=== PATIENT | female | born 1945 | race Caucasian/White ===

== ENCOUNTER 2020-04-12 14:29 | Outpatient (REF) | payer MEDICARE, SELFPAY ==
[2020-04-12 20:42] LABS: HCT 41.4 % (36.0-46.0); HGB 13.5 g/dL (12.0-15.5); Mean Corp. HGB Concentration 32.6 g/dL (32.0-36.0); Mean Corpuscular Hemoglobin 29.3 pg (27.0-33.0); Mean Platelet Volume 12.1 fL (8.0-11.0); Platelet Count 236 x1000/uL (130-400); RBC Distribution Width 13.7 % (11.7-14.6); White Blood Cell Count 6.23 k/cumm (4.4-10.8)
[2020-04-12 21:05] LABS: ALT 35 U/L (14-59); AST 23 U/L (15-37); Albumin 4.5 g/dL (3.4-5.0); Alkaline Phosphatase 74 U/L (46-116); Anion Gap 7.7 mmol/L (3-11); BUN 22 mg/dL (7-18); Bilirubin, Total 0.6 mg/dL (0.2-1.0); CO2 28.3 mmol/L (21.0-32.0); CREATININE 1.12 mg/dL (0.55-1.02); Calcium 10.5 mg/dL (8.5-10.1); Calculated LDL 84 mg/dL (<100); Chloride 102 mmol/L (98-107); Cholesterol 158 mg/dL (<200); Estimated GFR 47.69 (mL/min/1.73m2); Glucose 114 mg/dL (74-106); HDL Cholesterol 39 mg/dL (40-60); Potassium 4.2 mmol/L (3.5-5.1); Sodium 138 mmol/L (136-145); TSH (W/Ref FT4) 0.93 uIU/mL (0.36-3.74); Triglyceride 178 mg/dL (<150)
== END 2020-04-12 14:49 ==
LOC: NCHCN 14:29
PROVIDERS: PCP Internal Medicine; Visit Provider Internal Medicine
DX: E03.9 Hypothyroidism, unspecified (principal); E11.9 Type 2 diabetes mellitus without complications; I10 Essential (primary) hypertension
CPT/HCPCS: 80053; 80061; 85027; 84443

== ENCOUNTER 2020-04-13 09:13 | Outpatient (CLI) | payer MEDICARE, OTHER, SELFPAY ==
--- NOTE | 2020-04-13 | DI.RAD_ITS ---
EXAM: XR THORACIC SPINE COMPLETE CLINICAL HISTORY: BACK PAIN, M54.5, PSORIATIC ARTHRITIS,L40/50. TECHNIQUE: 2D digital imaging was performed. COMPARISON: CR CHEST 2 VIEWS PA,LAT from 07/30/2017 CR XR CERVICAL SPINE COMP 4-5V from 04/13/2020 FINDINGS: There are prominent and failure osteophytes seen throughout the thoracic spine. No compression fract ures are seen. No gross bony erosions are identified. The visualized portions of the lungs appear c lear. The heart size is within normal limits for projection. The aorta shows calcification but is n ormal in diameter. IMPRESSION: Advanced degenerative disc changes.. DATA REPOSITORY: RADIATION DOSE DELIVERED:
--- NOTE | 2020-04-13 | DI.RAD_ITS ---
EXAM: XR CERVICAL SPINE COMP 4-5V CLINICAL HISTORY: NECK PAIN, PSORIATIC ARTHRITIS, L40.50. TECHNIQUE: 2D digital imaging was performed. COMPARISON: CT HEAD WITHOUT CONTRAST from 07/30/2017 FINDINGS: There are severe degenerative changes at the C1-2 . There is some straightening of the normal cervic al lordosis. There is mild disc space narrowing and small endplate osteophytes throughout. There ar e prominent facet joint degenerative changes, greatest at C2-3 and C3-4. The findings appear more se beatriz on the right. There is bilateral neural foraminal encroachment at multiple levels. No bony ero sions are seen.. IMPRESSION: Severe facet joint degenerative changes. DATA REPOSITORY: RADIATION DOSE DELIVERED:
--- NOTE | 2020-04-13 | DI.RAD_ITS ---
EXAM: XR LUMBAR SPINE COMPLETE CLINICAL HISTORY: LOW BACK PAIN, M54.5, PSORIATIC ARTHRITIS,L40.50. TECHNIQUE: 2D digital imaging was performed. COMPARISON: No exams were available for comparison FINDINGS: The vertebral bodies are well maintained in height. There are severe degenerative disc changes at T1 2-L1. Endplate osteophytes are seen at the remaining levels. There is a levoscoliosis with the apex centered at L2. There are prominent facet degenerative changes of the lower lumbar spine. The aort a is heavily calcified and normal in diameter. There is surgical clips in both right and left upper quadrants. IMPRESSION: Severe degenerative disc changes greatest at the T12-L1. Scoliosis. Severe facet joint degenerative changes. DATA REPOSITORY: RADIATION DOSE DELIVERED:
== END 2020-04-13 09:33 ==
PROVIDERS: PCP Internal Medicine; Visit Provider Internal Medicine
DX: M54.2 Cervicalgia (principal); L40.50 Arthropathic psoriasis, unspecified; M47.812 Spondylosis without myelopathy or radiculopathy, cervical region; M54.6 Pain in thoracic spine; M47.815 Spondylosis without myelopathy or radiculopathy, thoracolumbar region; M54.5 Low back pain; M51.35 Other intervertebral disc degeneration, thoracolumbar region
CPT/HCPCS: 72050; 72072; 72110

== ENCOUNTER 2020-05-15 15:51 | Outpatient (REF) | payer MEDICARE, SELFPAY ==
[2020-05-15 20:55] LABS: Anion Gap 9.5 mmol/L (3-11); BUN 22 mg/dL (7-18); CO2 26.5 mmol/L (21.0-32.0); CREATININE 1.05 mg/dL (0.55-1.02); Chloride 103 mmol/L (98-107); Estimated GFR 51.37 (mL/min/1.73m2); Glucose 155 mg/dL (74-106); Potassium 4.2 mmol/L (3.5-5.1); Sodium 139 mmol/L (136-145)
== END 2020-05-15 16:11 ==
LOC: NCHCN 15:51
PROVIDERS: PCP Internal Medicine; Visit Provider Internal Medicine
DX: I10 Essential (primary) hypertension (principal)
CPT/HCPCS: 80048

== ENCOUNTER 2020-08-06 12:57 | Outpatient (REF) | payer MEDICARE, OTHER, SELFPAY ==
[2020-08-06 21:16] LABS: Anion Gap 9.8 mmol/L (3-11); BUN 28 mg/dL (7-18); CO2 25.2 mmol/L (21.0-32.0); CREATININE 1.27 mg/dL (0.55-1.02); Calcium 9.9 mg/dL (8.5-10.1); Chloride 104 mmol/L (98-107); Estimated GFR 41.25 (mL/min/1.73m2); Glucose 169 mg/dL (74-106); Potassium 4.5 mmol/L (3.5-5.1); Sodium 139 mmol/L (136-145)
== END 2020-08-06 13:17 ==
LOC: NCHCN 12:57
PROVIDERS: PCP Internal Medicine; Visit Provider Internal Medicine
DX: E11.9 Type 2 diabetes mellitus without complications (principal); I10 Essential (primary) hypertension; E83.52 Hypercalcemia
CPT/HCPCS: 80048; 83036

== ENCOUNTER 2020-08-16 02:44 | Outpatient (CLI) | payer MEDICARE, OTHER, SELFPAY ==
--- NOTE | 2020-08-16 | DI.MAMMO_ITS ---
EXAM: MAMMO SCREENING CLINICAL HISTORY: SCREENING,Z12.39 TECHNIQUE: Mammograms were interpreted according to the usual protocol including computer analysis w [employer] CAD system, tomosynthesis and C-view imaging. COMPARISON: FINDINGS: The breasts are of moderate density with fairly symmetrical distribution of fibroglandular tissue. N o dominant mass or clumped microcalcification is identified in either breast. No prior studies available for comparison. There is focal area nodularity projected in the supra-areolar portion the right breast MLO view, this is visible retro areolar laterally on the CC view as well, this is incompletely characterized, addit ional evaluation with spot compression views and right breast ultrasound recommended. No other suspicious findings. IMPRESSION: Additional mammographic views of the right breast and right breast ultrasound requested as described above. BI-RADS Category 0 - Assessment Incomplete: Need additional imaging evaluation Breast Density - Category B - Scattered areas of fibroglandular density
== END 2020-08-16 03:04 ==
PROVIDERS: PCP Internal Medicine; Visit Provider Internal Medicine
DX: Z12.31 Encounter for screening mammogram for malignant neoplasm of breast (principal); R92.8 Other abnormal and inconclusive findings on diagnostic imaging of breast
CPT/HCPCS: 77063; 77067

== ENCOUNTER 2020-08-23 00:26 | Outpatient (CLI) | payer MEDICARE, OTHER, SELFPAY ==
--- NOTE | 2020-08-23 | DI.US_ITS ---
EXAM: MG MAMMO SCREEN CALL BACK UNI CLINICAL HISTORY: F/U MAMMO,NODULARITY RT BREAST MLO VIEW TECHNIQUE: Mammograms were interpreted according to the usual protocol including computer analysis w ith CAD system, tomosynthesis and C-view imaging. COMPARISON: FINDINGS: Additional mammographic views the right breast and right breast ultrasound are interpreted in conjunc tion. These examinations were obtained to evaluate questionable area of asymmetric density in the up per outer quadrant right breast seen on recent mammogram. Additional mammographic views fail to show a discrete mass. Breast ultrasound shows no evidence of a mass or cyst. IMPRESSION: No specific evidence of malignancy at this time. Follow-up unilateral right breast mammogram recomme nded in 6 months. BI-RADS Category 3 - 6 month - Probably Benign Finding: Recommend follow-up mammography in 6 months Breast Density - Category B - Scattered areas of fibroglandular density
== END 2020-08-23 00:46 ==
PROVIDERS: PCP Internal Medicine; Visit Provider Internal Medicine
DX: R92.8 Other abnormal and inconclusive findings on diagnostic imaging of breast (principal)
CPT/HCPCS: 76642; 77063; 77067

== ENCOUNTER 2021-04-16 01:16 | Outpatient (CLI) | payer MEDICARE, OTHER, SELFPAY ==
--- NOTE | 2021-04-16 10:00 | DI.MAMMO_ITS ---
Exam(s) MAMMO DIAGNOSTIC BI EXAM: MAMMO DIAGNOSTIC BI CLINICAL HISTORY: 6 MONTH FOLLOW UP,F/U ABNL MAMMO, R92.8 TECHNIQUE: Mammograms were interpreted according to the usual protocol including computer analysis w [employer] CAD system, tomosynthesis and C-view imaging. COMPARISON: FINDINGS: The breasts are of moderate density with fairly symmetrical distribution of fibroglandular tissue. N o dominant mass or clumped microcalcification is identified in either breast. A previously described area of asymmetric density in the upper outer quadrant of the right breast seen on prior examination of August 2020 is unchanged or less prominent on the current examination. IMPRESSION: No specific evidence of malignancy at this time. Routine screening examinations are suggested at yea rly intervals in this age group according to the ACS ACR guidelines. BI-RADS Category 1 - Negative Breast Density - Category B - Scattered areas of fibroglandular density
== END 2021-04-16 01:36 ==
PROVIDERS: PCP Internal Medicine; Visit Provider Internal Medicine
DX: Z12.31 Encounter for screening mammogram for malignant neoplasm of breast (principal); R92.8 Other abnormal and inconclusive findings on diagnostic imaging of breast; N64.59 Other signs and symptoms in breast
CPT/HCPCS: 77062; 77066; G0279

== ENCOUNTER 2021-04-18 15:04 | Outpatient (REF) | payer MEDICARE, OTHER, SELFPAY ==
[2021-04-18 22:39] LABS: Anion Gap 7.8 mmol/L (3-11); BUN 23 mg/dL (7-18); CO2 28.2 mmol/L (21.0-32.0); CREATININE 1.1 mg/dL (0.55-1.02); Calcium 9.7 mg/dL (8.5-10.1); Chloride 99 mmol/L (98-107); Estimated GFR 48.55 (mL/min/1.73m2); Glucose 107 mg/dL (74-106); Potassium 4.9 mmol/L (3.5-5.1); Sodium 135 mmol/L (136-145); Vitamin B12 410 pg/mL (193-986)
== END 2021-04-18 15:05 | disposition home or self-care (01) ==
LOC: NCHCN 15:04
PROVIDERS: PCP Internal Medicine; Visit Provider Internal Medicine
DX: E53.8 Deficiency of other specified B group vitamins (principal); I10 Essential (primary) hypertension; N18.30 Chronic kidney disease, stage 3 unspecified
CPT/HCPCS: 80048; 82607